=== PATIENT | female | born 1965 | race Caucasian/White ===

== ENCOUNTER 2017-09-20 10:01 | Emergency (ER) | payer SELFPAY ==
[2017-09-20] MEDS ORDERED: Sodium Chloride 0.9% 1,000 ML ONE (10:48)
[2017-09-20] MEDS ORDERED: Sodium Chloride 0.9% 100 ML ONE (10:49)
[2017-09-20] MEDS ORDERED: Metoclopramide HCl 10 MG/2 ML VIAL ONE (10:49)
[2017-09-20] MEDS ORDERED: SUMAtriptan Succinate 6 MG/0.5 ML VIAL ONE (12:31)
[2017-09-20] MEDS ORDERED: Ketorolac Tromethamine 30 MG/ML VIAL ONE (12:31)
--- NOTE | 2017-09-20 12:55 | CT ---
CT HEAD NONCOTNRAST: History Headache. COMPARISON: 10/06/14. FINDINGS: There is no evidence of acute intracranial hemorrhage or infarct. The ventricles appear normal in si ze, shape, and position. There is no mass effect or shift of midline structures. IMPRESSION: No acute intracranial abnormalities are demonstrated on noncontrast CT head. POS: [facility]
== END 2017-09-20 13:15 | disposition home or self-care (01) ==
LOC: NAV ERS 10:01
DX: I10 Essential (primary) hypertension (principal); R51 Headache; J45.909 Unspecified asthma, uncomplicated
CPT/HCPCS: 70450; 96365; 96372; 96375; J1885; J2765; J3030; J7050

== ENCOUNTER 2023-04-03 15:12 | Outpatient (CLI) | payer OTHER | END 2023-04-03 15:13 | disposition home or self-care (01) | LOC: NAV RAD 15:12 | PROVIDERS: ATTEND Nurse Practitioner Family | DX: M79.671 Pain in right foot (principal); M54.6 Pain in thoracic spine; M19.071 Primary osteoarthritis, right ankle and foot; M47.814 Spondylosis without myelopathy or radiculopathy, thoracic region; M46.04 Spinal enthesopathy, thoracic region | CPT/HCPCS: 72072 ==